=== PATIENT | male | born 1950 | race Caucasian/White ===

== ENCOUNTER 2017-06-04 14:09 | Inpatient (IN) | payer OTHER ==
[2017-06-04 15:38] VITALS: BMI 24.9
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
[2017-06-04] MEDS ORDERED: guaiFENesin/D-METHORPHAN HB 10 ML UNIT-DOSE CUPS PO PRN (20:14)
[2017-06-04] MEDS ORDERED: LOPERAMIDE HCL 2 MG CAPSULE PO PRN (20:14)
[2017-06-04] MEDS ORDERED: MENTHOL/PHENOL 1 EACH UD MM PRN (20:14)
[2017-06-04] MEDS ORDERED: P-EPHED 60MG/TRIPROLIDI 2.5MG TABLET PO PRN (20:14)
[2017-06-04] MEDS ORDERED: MAGNESIUM HYDROX 2400MG/30ML ORAL SUSPENSION 30 ML CUP PO PRN (20:14)
[2017-06-04] MEDS ORDERED: MAG HYDROX/AL HYDROX/SIMETH 30 ML UNIT-DOSE CUP PO PRN (20:14)
[2017-06-04] MEDS ORDERED: NICOTINE POLACRILEX 2 MG GUM BC PRN (20:14)
[2017-06-04] MEDS ORDERED: MAGNESIUM CITRATE 300 ML BOTTLE PO PRN (20:14)
[2017-06-04] MEDS ORDERED: chlordiazePOXIDE HCL 25 MG CAPSULE PO PRN (20:14)
[2017-06-04] MEDS ORDERED: ATORVASTATIN CA 40 MG TABLET (FP) ONE (21:32)
[2017-06-04] MEDS: LATANOPROST 0.005% OPHTH SOLN 2.5ML BOTTLE OU SCH (22:24)
[2017-06-04] MEDS: THIAMINE HCL 100 MG TABLET (FP) PO SCH (22:25)
[2017-06-04] MEDS: chlordiazePOXIDE HCL 25 MG CAPSULE PO SCH (22:25)
[2017-06-04] MEDS: BACLOFEN 10 MG TABLET (FP) PO PRN (22:25)
[2017-06-04] MEDS: ATORVASTATIN CA 80 MG TABLET (FP) PO SCH (22:26)
[2017-06-04] MEDS: TIMOLOL 0.5% OPHTHALMIC SOL 5 ML BOTTLE OU SCH (23:53)
[2017-06-05] MEDS: chlordiazePOXIDE HCL 25 MG CAPSULE PO SCH ×4 (05:48→22:52)
[2017-06-05 10:12] LABS: MCHC 34.1 g/dl (32.0-35.9); MEAN CELL VOLUME 99.9 fl (80-96); MEAN PLT VOLUME 8.7 fl (7.5-11.1); PLATELET COUNT 287 K/MM3 (134-434); RDW 14.1 % (11.9-15.9); WHITE BLOOD COUNT 10.2 K/mm3 (4.0-10.0)
[2017-06-05] MEDS: TAMSULOSIN HCL 0.4 MG CAP.ER.24H (FP) PO SCH (10:22)
[2017-06-05] MEDS: BACLOFEN 10 MG TABLET (FP) PO PRN (10:22)
[2017-06-05] MEDS: ASPIRIN 81 MG CHEWABLE TABLETS PO SCH (10:22)
[2017-06-05] MEDS: PRENATAL VITAMINS W/ FOLIC ACID TABLET (FP) PO SCH (10:22)
[2017-06-05] MEDS: amLODIPine BESYLATE 5 MG TABLET (FP) PO SCH (10:22)
[2017-06-05] MEDS: TIMOLOL 0.5% OPHTHALMIC SOL 5 ML BOTTLE OU SCH ×2 (10:23→22:53)
[2017-06-05] MEDS: NICOTINE 14 MG/24 HOURS TOPICAL PATCH TD SCH (10:24)
--- NOTE | 2017-06-05 10:34 | PN ---
S CIWA - CIWA Score Nausea/Vomitin Muscle Tremors: 3 Anxiety: 3 Agitation: 3 Paroxysmal Sweats: 1-Minimal Palms Moist Orientation: 0-Oriented Tacttile Disturbances: 1-Very Mild Itch/Numbness Auditory Disturbances: 1-Very Mild Visual Disturbances: 0-None Headache: 2-Mild CIWA-Ar Total Score: 17 BHS Progress Note (SOAP) Subjective: alert,irritable,anxious,interrupted sleep,tremor Objective: 06/05/17 10:32 Vital Signs Temperature 97.3 F L 06/05/17 07:41 Pulse Rate 87 06/05/17 07:41 Respiratory Rate 18 06/05/17 07:41 Blood Pressure 143/93 06/05/17 07:41 O2 Sat by Pulse Oximetry (%) ekg nsr,normal ecg labs pending Assessment: 06/05/17 10:34 withdrawal symptom Plan: continue detox
[2017-06-05 11:13] LABS: ALBUMIN 3.1 g/dl (3.4-5.0); CALCIUM 8.6 mg/dL (8.5-10.1); CO2 25 mmol/L (21-32); CREATININE 0.7 mg/dL (0.7-1.3); GLUCOSE,RANDOM 81 mg/dL (74-106); SGOT/AST 21 U/L (15-37); SGPT/ALT 23 U/L (12-78)
[2017-06-05 11:15] LABS: ALK PHOS 96 U/L (45-117); BILIRUBIN,TOTAL 0.5 mg/dL (0.2-1.0); TOT PROT 7.8 g/dl (6.4-8.2)
[2017-06-05] MEDS: LIDOCAINE 5% TOPICAL PATCH TP SCH (11:38)
[2017-06-05 11:43] LABS: ANION GAP 9 (8-16)
[2017-06-05] MEDS ORDERED: FLU VACCINE QUAD 60 MCG/0.5 ML (MDV 17-18) IM ONE (12:00)
[2017-06-05] MEDS: ASPIRIN/DIPYRIDAMOLE 25 MG/200 MG CAPSULE (FP) PO SCH (13:16)
[2017-06-05] MEDS: ACETAMINOPHEN 325 MG TABLET (FP) PO PRN (13:22)
--- NOTE | 2017-06-05 16:31 | EKG ---
Test Reason : Blood Pressure : / mmHG Vent. Rate : 075 BPM Atrial Rate : 075 BPM P-R Int : 120 ms QRS Dur : 106 ms QT Int : 422 ms P-R-T Axes : 032 -12 060 degrees QTc Int : 471 ms NORMAL SINUS RHYTHM RSR' IN V1-V2 NORMAL ECG NO PREVIOUS ECGS AVAILABLE Confirmed by JACQUI MEDINA MD ([id number]) on 06/05/2017 4:30:49 PM Referred By: Confirmed By:JACQUI MEDINA MD
[2017-06-05] MEDS ORDERED: ATORVASTATIN CA 40 MG TABLET (FP) ONE (21:21)
[2017-06-05] MEDS: ATORVASTATIN CA 80 MG TABLET (FP) PO SCH (22:53)
[2017-06-05] MEDS: THIAMINE HCL 100 MG TABLET (FP) PO SCH (22:53)
[2017-06-05] MEDS: LATANOPROST 0.005% OPHTH SOLN 2.5ML BOTTLE OU SCH (22:53)
[2017-06-05] MEDS: LIDOCAINE PATCH REMOVAL MC SCH (22:53)
[2017-06-06] MEDS: ACETAMINOPHEN 325 MG TABLET (FP) PO PRN ×3 (01:58→16:23)
[2017-06-06] MEDS: chlordiazePOXIDE HCL 25 MG CAPSULE PO SCH ×3 (05:16→17:45)
--- NOTE | 2017-06-06 09:44 | PN ---
S CIWA - CIWA Score Nausea/Vomitin Muscle Tremors: 3 Anxiety: 3 Agitation: 2 Paroxysmal Sweats: 1-Minimal Palms Moist Orientation: 0-Oriented Tacttile Disturbances: 1-Very Mild Itch/Numbness Auditory Disturbances: 1-Very Mild Visual Disturbances: 0-None Headache: 2-Mild CIWA-Ar Total Score: 16 BHS Progress Note (SOAP) Subjective: alert,irritable,anxious,interrupted sleep,tremor Objective: 06/06/17 09:43 Vital Signs Temperature 96.3 F L 06/06/17 07:19 Pulse Rate 83 06/06/17 07:19 Respiratory Rate 8 L 06/06/17 07:19 Blood Pressure 144/83 06/06/17 07:19 O2 Sat by Pulse Oximetry (%) Laboratory Last Values WBC 10.2 K/mm3 (4.0-10.0) H D 06/05/17 07:40 RBC 4.04 M/mm3 (4.00-5.60) 06/05/17 07:40 Hgb 13.8 GM/dL (11.7-16.9) 06/05/17 07:40 Hct 40.4 % (35.4-49) 06/05/17 07:40 MCV 99.9 fl (80-96) H 06/05/17 07:40 MCH 34.0 pg (25.7-33.7) H 06/05/17 07:40 MCHC 34.1 g/dl (32.0-35.9) 06/05/17 07:40 RDW 14.1 % (11.9-15.9) D 06/05/17 07:40 Plt Count 287 K/MM3 (134-434) D 06/05/17 07:40 MPV 8.7 fl (7.5-11.1) 06/05/17 07:40 Sodium 140 mmol/L (136-145) 06/05/17 07:40 Potassium 3.9 mmol/L (3.5-5.1) 06/05/17 07:40 Chloride 106 mmol/L (98-107) 06/05/17 07:40 Carbon Dioxide 25 mmol/L (21-32) 06/05/17 07:40 Anion Gap 9 (8-16) 06/05/17 07:40 BUN 13 mg/dL (7-18) D 06/05/17 07:40 Creatinine 0.7 mg/dL (0.7-1.3) 06/05/17 07:40 Creat Clearance w eGFR > 60 (>60) 06/05/17 07:40 Random Glucose 81 mg/dL (74-106) 06/05/17 07:40 Calcium 8.6 mg/dL (8.5-10.1) 06/05/17 07:40 Total Bilirubin 0.5 mg/dL (0.2-1.0) D 06/05/17 07:40 AST 21 U/L (15-37) D 06/05/17 07:40 ALT 23 U/L (12-78) D 06/05/17 07:40 Alkaline Phosphatase 96 U/L (45-117) 06/05/17 07:40 Total Protein 7.8 g/dl (6.4-8.2) 06/05/17 07:40 Albumin 3.1 g/dl (3.4-5.0) L 06/05/17 07:40 RPR Titer Nonreactive (NONREACTIVE) 06/05/17 07:40 Assessment: 06/06/17 09:43 withdrawal symptom Plan: continue detox
[2017-06-06] MEDS: LIDOCAINE 5% TOPICAL PATCH TP SCH (10:00)
[2017-06-06] MEDS: PRENATAL VITAMINS W/ FOLIC ACID TABLET (FP) PO SCH (10:08)
[2017-06-06] MEDS: amLODIPine BESYLATE 5 MG TABLET (FP) PO SCH (10:08)
[2017-06-06] MEDS: ASPIRIN 81 MG CHEWABLE TABLETS PO SCH (10:08)
[2017-06-06] MEDS: TAMSULOSIN HCL 0.4 MG CAP.ER.24H (FP) PO SCH (10:08)
[2017-06-06] MEDS: TIMOLOL 0.5% OPHTHALMIC SOL 5 ML BOTTLE OU SCH ×2 (10:09→22:04)
[2017-06-06] MEDS: ASPIRIN/DIPYRIDAMOLE 25 MG/200 MG CAPSULE (FP) PO SCH (10:09)
[2017-06-06] MEDS: NICOTINE 14 MG/24 HOURS TOPICAL PATCH TD SCH (10:09)
[2017-06-06] MEDS: BACLOFEN 10 MG TABLET (FP) PO PRN (10:11)
[2017-06-06 11:28] LABS: URINE APPEARANCE CLEAR; URINE BILIRUBIN NEGATIVE (NEGATIVE); URINE BLOOD NEGATIVE (NEGATIVE); URINE COLOR LTYELLOW; URINE GLUCOSE (UA) NEGATIVE (NEGATIVE); URINE KETONE NEGATIVE (NEGATIVE); URINE NITRITE NEGATIVE (NEGATIVE); URINE PROTEIN NEGATIVE (NEGATIVE); URINE UROBILINOGEN NEGATIVE mg/dL (0.2-1.0)
[2017-06-06 19:07] LABS: URINE LEUK ESTERASE Negative (NEGATIVE)
[2017-06-06] MEDS ORDERED: ATORVASTATIN CA 40 MG TABLET (FP) ONE (21:05)
[2017-06-06] MEDS: LATANOPROST 0.005% OPHTH SOLN 2.5ML BOTTLE OU SCH (22:04)
[2017-06-06] MEDS: LIDOCAINE PATCH REMOVAL MC SCH (22:05)
[2017-06-06] MEDS: THIAMINE HCL 100 MG TABLET (FP) PO SCH (22:05)
[2017-06-06] MEDS: chlordiazePOXIDE 5 MG CAPSULE PO SCH (22:06)
[2017-06-06] MEDS: ATORVASTATIN CA 80 MG TABLET (FP) PO SCH (22:06)
[2017-06-07] MEDS: chlordiazePOXIDE 5 MG CAPSULE PO SCH ×3 (05:16→17:45)
--- NOTE | 2017-06-07 09:08 | PN ---
S Progress Note (SOAP) Subjective: alert,irritable,anxious,interrupted sleep,tremor constipation Objective: 06/07/17 09:04 Vital Signs Temperature 97.5 F L 06/07/17 06:02 Pulse Rate 85 06/07/17 06:02 Respiratory Rate 18 06/07/17 06:02 Blood Pressure 138/88 06/07/17 06:02 O2 Sat by Pulse Oximetry (%) Assessment: 06/07/17 09:06 withdrawal symptom Plan: continue detox,metamucil
[2017-06-07] MEDS: TAMSULOSIN HCL 0.4 MG CAP.ER.24H (FP) PO SCH (10:09)
[2017-06-07] MEDS: ASPIRIN 81 MG CHEWABLE TABLETS PO SCH (10:09)
[2017-06-07] MEDS: amLODIPine BESYLATE 5 MG TABLET (FP) PO SCH (10:09)
[2017-06-07] MEDS: PRENATAL VITAMINS W/ FOLIC ACID TABLET (FP) PO SCH (10:09)
[2017-06-07] MEDS: ASPIRIN/DIPYRIDAMOLE 25 MG/200 MG CAPSULE (FP) PO SCH (10:09)
[2017-06-07] MEDS: NICOTINE 14 MG/24 HOURS TOPICAL PATCH TD SCH (10:10)
[2017-06-07] MEDS: TIMOLOL 0.5% OPHTHALMIC SOL 5 ML BOTTLE OU SCH ×2 (10:10→22:19)
[2017-06-07] MEDS: LIDOCAINE 5% TOPICAL PATCH TP SCH (10:11)
[2017-06-07] MEDS: PSYLLIUM 5.85 GM PACKET PO SCH (10:12)
[2017-06-07] MEDS: BACLOFEN 10 MG TABLET (FP) PO PRN (22:20)
[2017-06-07] MEDS: ATORVASTATIN CA 80 MG TABLET (FP) PO SCH (22:20)
[2017-06-07] MEDS: LIDOCAINE PATCH REMOVAL MC SCH (22:20)
[2017-06-07] MEDS: LATANOPROST 0.005% OPHTH SOLN 2.5ML BOTTLE OU SCH (22:20)
[2017-06-07] MEDS: chlordiazePOXIDE HCL 10 MG CAPSULE PO SCH (22:20)
[2017-06-07] MEDS: THIAMINE HCL 100 MG TABLET (FP) PO SCH (22:45)
[2017-06-08] MEDS: chlordiazePOXIDE HCL 10 MG CAPSULE PO SCH ×3 (05:43→17:16)
[2017-06-08] MEDS: ASPIRIN/DIPYRIDAMOLE 25 MG/200 MG CAPSULE (FP) PO SCH (10:31)
[2017-06-08] MEDS: ASPIRIN 81 MG CHEWABLE TABLETS PO SCH (10:31)
[2017-06-08] MEDS: PSYLLIUM 5.85 GM PACKET PO SCH (10:32)
[2017-06-08] MEDS: TIMOLOL 0.5% OPHTHALMIC SOL 5 ML BOTTLE OU SCH ×2 (10:32→22:25)
[2017-06-08] MEDS: amLODIPine BESYLATE 5 MG TABLET (FP) PO SCH (10:32)
[2017-06-08] MEDS: PRENATAL VITAMINS W/ FOLIC ACID TABLET (FP) PO SCH (10:32)
[2017-06-08] MEDS: TAMSULOSIN HCL 0.4 MG CAP.ER.24H (FP) PO SCH (10:32)
[2017-06-08] MEDS: NICOTINE 14 MG/24 HOURS TOPICAL PATCH TD SCH (10:33)
[2017-06-08] MEDS: LIDOCAINE 5% TOPICAL PATCH TP SCH (10:33)
[2017-06-08] MEDS: THIAMINE HCL 100 MG TABLET (FP) PO SCH (22:26)
[2017-06-08] MEDS: ATORVASTATIN CA 80 MG TABLET (FP) PO SCH (22:26)
[2017-06-08] MEDS: LATANOPROST 0.005% OPHTH SOLN 2.5ML BOTTLE OU SCH (22:26)
[2017-06-08] MEDS: LIDOCAINE PATCH REMOVAL MC SCH (22:27)
[2017-06-09] MEDS: BACLOFEN 10 MG TABLET (FP) PO PRN (05:34)
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
[2017-06-09 10:02] VITALS: BP 120/72; PULSE 90; TEMP 98.1
[2017-06-09] MEDS: PRENATAL VITAMINS W/ FOLIC ACID TABLET (FP) PO SCH (10:15)
[2017-06-09] MEDS: ASPIRIN/DIPYRIDAMOLE 25 MG/200 MG CAPSULE (FP) PO SCH (10:15)
[2017-06-09] MEDS: ASPIRIN 81 MG CHEWABLE TABLETS PO SCH (10:15)
[2017-06-09] MEDS: amLODIPine BESYLATE 5 MG TABLET (FP) PO SCH (10:15)
[2017-06-09] MEDS: TAMSULOSIN HCL 0.4 MG CAP.ER.24H (FP) PO SCH (10:15)
[2017-06-09] MEDS: LIDOCAINE 5% TOPICAL PATCH TP SCH (10:15)
[2017-06-09] MEDS: PSYLLIUM 5.85 GM PACKET PO SCH (10:15)
[2017-06-09] MEDS: TIMOLOL 0.5% OPHTHALMIC SOL 5 ML BOTTLE OU SCH (10:16)
[2017-06-09] MEDS: NICOTINE 14 MG/24 HOURS TOPICAL PATCH TD SCH (11:02)
== END 2017-06-09 10:20 | disposition home or self-care (01) | DRG 775 ==
LOC: YASAS 14:09 → Y6N 19:23
PROVIDERS: ADMIT Internal Medicine; ATTEND Internal Medicine
PROC: HZ2ZZZZ Detoxification Services for Substance Abuse Treatment (ICD-10-PCS; principal; 2017-06-04)
DX: F10.230 Alcohol dependence with withdrawal, uncomplicated (principal); F12.20 Cannabis dependence, uncomplicated; F17.213 Nicotine dependence, cigarettes, with withdrawal; I10 Essential (primary) hypertension; H40.9 Unspecified glaucoma; E78.5 Hyperlipidemia, unspecified; D64.9 Anemia, unspecified; R00.0 Tachycardia, unspecified; R26.2 Difficulty in walking, not elsewhere classified; Z99.89 Dependence on other enabling machines and devices; Z86.718 Personal history of other venous thrombosis and embolism; I69.351 Hemiplegia and hemiparesis following cerebral infarction affecting right dominant side; Z87.898 Personal history of other specified conditions; Z87.828 Personal history of other (healed) physical injury and trauma; Z98.890 Other specified postprocedural states; Z79.82 Long term (current) use of aspirin; Z59.0 Homelessness
CPT/HCPCS: 36415; 80053; 81003; 85027; 86593; 90688; 93005; 93010; G0008; J0475

== ENCOUNTER 2018-08-31 13:45 | Inpatient (IN) | payer OTHER ==
[2018-08-31 16:30] VITALS: BMI 22.8
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
[2018-08-31] MEDS ORDERED: MAG HYDROX/AL HYDROX/SIMETH 30 ML UNIT-DOSE CUP PO PRN (19:41)
[2018-08-31] MEDS ORDERED: P-EPHED 60MG/TRIPROLIDI 2.5MG TABLET PO PRN (19:41)
[2018-08-31] MEDS ORDERED: ACETAMINOPHEN 325 MG TABLET (FP) PO PRN (19:41)
[2018-08-31] MEDS ORDERED: IBUPROFEN 400 MG TABLET (FP) PO PRN (19:41)
[2018-08-31] MEDS ORDERED: guaiFENesin/D-METHORPHAN HB 10 ML UNIT-DOSE CUPS PO PRN (19:41)
[2018-08-31] MEDS ORDERED: NICOTINE POLACRILEX 2 MG GUM BC PRN (19:41)
[2018-08-31] MEDS ORDERED: LOPERAMIDE HCL 2 MG CAPSULE PO PRN (19:41)
[2018-08-31] MEDS ORDERED: MENTHOL/PHENOL 1 EACH UD MM PRN (19:41)
[2018-08-31] MEDS ORDERED: MAGNESIUM HYDROX 2400MG/30ML ORAL SUSPENSION 30 ML CUP PO PRN (19:41)
[2018-08-31] MEDS ORDERED: chlordiazePOXIDE HCL 25 MG CAPSULE PO PRN (19:41)
[2018-08-31] MEDS ORDERED: MAGNESIUM CITRATE 300 ML BOTTLE PO PRN (19:41)
[2018-08-31] MEDS ORDERED: PATIENT'S OWN MEDICATION (NON-FORMULARY) (Dorzolamide Hcl/Timolol Maleat [Cosopt Eye Drops OS SCH (19:45)
[2018-08-31] MEDS ORDERED: MELATONIN 5 MG TABLETS PO PRN (22:00)
[2018-08-31] MEDS: THIAMINE HCL 100 MG TABLET (FP) PO SCH (22:19)
[2018-08-31] MEDS: chlordiazePOXIDE HCL 25 MG CAPSULE PO SCH (22:19)
[2018-08-31] MEDS: COLLOIDAL OATMEAL 1 BAR EACH TP PRN (22:26)
[2018-08-31] MEDS: hydrOXYzine HCL 25 MG TABLET (FP) PO PRN (22:27)
[2018-08-31 23:10] LABS: URINE APPEARANCE CLEAR; URINE BILIRUBIN NEGATIVE (<2.0 mg/dL); URINE COLOR YELLOW; URINE GLUCOSE (UA) NEGATIVE (NEGATIVE); URINE KETONE NEGATIVE (NEGATIVE); URINE LEUK ESTERASE NEGATIVE (NEGATIVE); URINE NITRITE NEGATIVE (NEGATIVE); URINE PROTEIN 2+ (NEGATIVE); URINE UROBILINOGEN NEGATIVE mg/dL (0.2-1.0)
[2018-08-31 23:15] LABS: EPI CELLS RARE /HPF (FEW); URINE MUCUS RARE
[2018-08-31] MEDS: TIMOLOL 0.5% OPHTHALMIC SOL 5 ML BOTTLE OU SCH (23:29)
[2018-08-31] MEDS: DORZOLAMIDE 2% HCL OPHTHALMIC SOLUTION 10 ML BOTTLE OS SCH (23:30)
[2018-08-31] MEDS: TIMOLOL 0.5% OPHTHALMIC SOL 5 ML BOTTLE OS SCH (23:30)
[2018-08-31] MEDS: LATANOPROST 0.005% OPHTH SOLN 2.5ML BOTTLE OU SCH (23:31)
[2018-09-01] MEDS: chlordiazePOXIDE HCL 25 MG CAPSULE PO SCH ×4 (05:32→23:10)
--- NOTE | 2018-09-01 09:40 | CONSULT ---
[facility] Psychiatric Consult - Data Date of interview: 09/01/18 Admission source: [facility] Identifying data: Patient is a 68 year old [place] male, father of one, unemployed , homeless, and supported by [facility]. This is one of multiple admissions for patient. Patient admitted to for alcohol dependence. Substance Abuse History: Smoking Cessation. Smoking history: Current every day smoker. Have you smoked in the past 12 months: Yes. Aproximately how many cigarettes per day: 10. Cigars Per Day: 0. Hx Chewing Tobacco Use: No. Initiated information on smoking cessation: Yes. 'Breaking Loose' booklet given : 08/31/18. - Substance & Tx. History. Hx Alcohol Use: Yes. Hx Substance Use : Yes. Substance Use Type: Alcohol, Marijuana. - Substances Abused. Alcohol. Route: Oral. Frequency: Daily. Amount used: 30 BEERS. Age of first use: 20. Date of Last Use: 08/31/18. Marijuana/Hashish. Route: Smoking. Frequency: 1-2 times per week. Amount used: 2 BLUNTS. Age of first use: 40. Date of Last Use: 08/30/18 Medical History: Anemia, hypertension, hypercholesterolemia, CVA (right sided weakness) Psychiatric History: Patient denies h/o psychiatric hospitalization, outpatient care, and suicide attempt. He denies feeling depressed. Only stated that he misses his family since leaving [place] 40 years ago and has lost contact with all of them. At present he reports feeling fine. Physical/Sexual Abuse/Trauma History: denies. Mental Status Exam - Mental Status Exam Alert and Oriented to: Time, Place, Person Cognitive Function: Good Patient Appearance: Well Groomed Mood: Euthymic Affect: Appropriate Patient Behavior: Appropriate, Cooperative Speech Pattern: Appropriate ([place] speaking) Voice Loudness: Normal Thought Process: Intact, Goal Oriented Thought Disorder: Not Present Hallucinations: Denies Suicidal Ideation: Denies Homicidal Ideation: Denies Insight/Judgement: Poor Sleep: Fair Appetite: Fair Muscle strength/Tone: Normal Gait/Station: Normal Psychiatric Findings - Problem List ([place] 1, 2,3) (1) Alcohol dependence with uncomplicated withdrawal Current Visit: Yes Status: Acute (2) Nicotine dependence Current Visit: Yes Status: Acute Qualifiers: Nicotine product type: cigarettes Substance use status: in withdrawal Qualified Code(s): F17.213 - Nicotine dependence, cigarettes, with withdrawal - Initial Treatment Plan Initial Treatment Plan: Psychoeducation provided. Detoxification in progress. Observation.
[2018-09-01] MEDS ORDERED: PRENATAL VITAMINS W/ FOLIC ACID TABLET (FP) PO SCH (10:00)
[2018-09-01] MEDS: TAMSULOSIN HCL 0.4 MG CAP PO SCH (10:24)
[2018-09-01] MEDS: amLODIPine BESYLATE 10 MG TABLET (FP) PO SCH (10:24)
[2018-09-01] MEDS: NICOTINE 14 MG/24 HOURS TOPICAL PATCH TD SCH (10:25)
[2018-09-01] MEDS: TIMOLOL 0.5% OPHTHALMIC SOL 5 ML BOTTLE OU SCH ×2 (10:25→23:14)
[2018-09-01] MEDS: TIMOLOL 0.5% OPHTHALMIC SOL 5 ML BOTTLE OS SCH ×2 (10:26→23:13)
[2018-09-01] MEDS: DORZOLAMIDE 2% HCL OPHTHALMIC SOLUTION 10 ML BOTTLE OS SCH ×2 (10:27→23:15)
[2018-09-01] MEDS: HYDROCORTISONE 1% TOPICAL OINT 30 GM TUBE TP PRN ×2 (10:28→19:47)
[2018-09-01 10:31] LABS: HEMATOCRIT 39.2 % (35.4-49); HEMOGLOBIN 13.6 GM/dL (11.7-16.9); MCH 35.8 pg (25.7-33.7); MCHC 34.7 g/dl (32.0-35.9); MEAN CELL VOLUME 103.3 fl (80-96); MEAN PLT VOLUME 9.2 fl (7.5-11.1); PLATELET COUNT 163 K/MM3 (134-434); RBC 3.79 M/mm3 (4.00-5.60); RDW 15.2 % (11.9-15.9); WHITE BLOOD COUNT 5.6 K/mm3 (4.0-10.0)
[2018-09-01 11:06] LABS: ALBUMIN 3.5 g/dl (3.4-5.0); ALK PHOS 77 U/L (45-117); ANION GAP 6 MMOL/L (8-16); BILIRUBIN,TOTAL 0.9 mg/dL (0.2-1); BLOOD UREA NITROGEN 33 mg/dL (7-18); CALCIUM 8.6 mg/dL (8.5-10.1); CHLORIDE 106 mmol/L (98-107); CO2 29 mmol/L (21-32); GLUCOSE,RANDOM 90 mg/dL (74-106); POTASSIUM 3.4 mmol/L (3.5-5.1); SGOT/AST 121 U/L (15-37); SGPT/ALT 141 U/L (13-61); SODIUM 141 mmol/L (136-145); TOT PROT 6.9 g/dl (6.4-8.2)
--- NOTE | 2018-09-01 13:13 | PN ---
S CIWA - CIWA Score Nausea/Vomitin-Mild Nausea/No Vomiting Muscle Tremors: 3 Anxiety: 2 Agitation: 3 Paroxysmal Sweats: 1-Minimal Palms Moist Orientation: 1-Uncertain about Date Tacttile Disturbances: 0-None Auditory Disturbances: 0-None Visual Disturbances: 0-None Headache: 2-Mild CIWA-Ar Total Score: 13 S Progress Note (SOAP) Subjective: difficulty to move bowel tremor sweating Objective: 09/01/18 13:12 Vital Signs Temperature 96.3 F L 09/01/18 09:15 Pulse Rate 94 H 09/01/18 09:15 Respiratory Rate 18 09/01/18 09:15 Blood Pressure 135/82 09/01/18 09:15 O2 Sat by Pulse Oximetry (%) Laboratory Last Values WBC 5.6 K/mm3 (4.0-10.0) 09/01/18 07:00 RBC 3.79 M/mm3 (4.00-5.60) L 09/01/18 07:00 Hgb 13.6 GM/dL (11.7-16.9) 09/01/18 07:00 Hct 39.2 % (35.4-49) 09/01/18 07:00 MCV 103.3 fl (80-96) H 09/01/18 07:00 MCH 35.8 pg (25.7-33.7) H 09/01/18 07:00 MCHC 34.7 g/dl (32.0-35.9) 09/01/18 07:00 RDW 15.2 % (11.9-15.9) 09/01/18 07:00 Plt Count 163 K/MM3 (134-434) D 09/01/18 07:00 MPV 9.2 fl (7.5-11.1) 09/01/18 07:00 Sodium 141 mmol/L (136-145) 09/01/18 07:00 Potassium 3.4 mmol/L (3.5-5.1) L 09/01/18 07:00 Chloride 106 mmol/L (98-107) 09/01/18 07:00 Carbon Dioxide 29 mmol/L (21-32) 09/01/18 07:00 Anion Gap 6 MMOL/L (8-16) L 09/01/18 07:00 BUN 33 mg/dL (7-18) H 09/01/18 07:00 Creatinine 1.0 mg/dL (0.55-1.3) 09/01/18 07:00 Creat Clearance w eGFR > 60 (>60) 09/01/18 07:00 Random Glucose 90 mg/dL (74-106) 09/01/18 07:00 Calcium 8.6 mg/dL (8.5-10.1) 09/01/18 07:00 Total Bilirubin 0.9 mg/dL (0.2-1) 09/01/18 07:00 AST 121 U/L (15-37) H 09/01/18 07:00 ALT 141 U/L (13-61) H 09/01/18 07:00 Alkaline Phosphatase 77 U/L (45-117) 09/01/18 07:00 Total Protein 6.9 g/dl (6.4-8.2) 09/01/18 07:00 Albumin 3.5 g/dl (3.4-5.0) 09/01/18 07:00 Urine Color Yellow 08/31/18 22:00 Urine Appearance Clear 08/31/18 22:00 Urine pH 5.0 (5.0-8.0) D 08/31/18 22:00 Ur Specific [place] 1.024 (1.010-1.035) 08/31/18 22:00 Urine Protein 2+ (NEGATIVE) H 08/31/18 22:00 Urine Glucose (UA) Negative (NEGATIVE) 08/31/18 22:00 Urine Ketones Negative (NEGATIVE) 08/31/18 22:00 Urine Blood 1+ (NEGATIVE) H 08/31/18 22:00 Urine Nitrite Negative (NEGATIVE) 08/31/18 22:00 Urine Bilirubin Negative (<2.0 mg/dL) 08/31/18 22:00 Urine Urobilinogen Negative mg/dL (0.2-1.0) 08/31/18 22:00 Ur Leukocyte Esterase Negative (NEGATIVE) 08/31/18 22:00 Urine WBC (Auto) 1 /hpf (3-5) 08/31/18 22:00 Urine RBC (Auto) 2 /hpf (0-3) 08/31/18 22:00 Ur Epithelial Cells Rare /HPF (FEW) 08/31/18 22:00 Urine Mucus Rare 08/31/18 22:00 lab noted low K+ liver enzyme elevation 09/01/18 13:15 Assessment: 09/01/18 13:15 withdrawal sx Plan: continue detox K+ supplement repeat K+ repeat ast
[2018-09-01] MEDS: POTASSIUM CHLORIDE TABS 20 MEQ TABLET.ER (FP) PO SCH (15:17)
[2018-09-01] MEDS: PSYLLIUM 5.85 GM PACKET PO SCH ×2 (15:17→23:07)
--- NOTE | 2018-09-01 16:47 | EKG ---
Test Reason : Blood Pressure : / mmHG Vent. Rate : 087 BPM Atrial Rate : 087 BPM P-R Int : 138 ms QRS Dur : 108 ms QT Int : 380 ms P-R-T Axes : 042 -23 053 degrees QTc Int : 457 ms NORMAL SINUS RHYTHM NORMAL ECG WHEN COMPARED WITH ECG OF 04-JUN-2017 21:22, NO SIGNIFICANT CHANGE WAS FOUND Confirmed by BRINA TORRES MD ([id number]) on 09/01/2018 4:47:06 PM Referred By: Confirmed By:BRINA TORRES MD
[2018-09-01] MEDS: THIAMINE HCL 100 MG TABLET (FP) PO SCH (23:10)
[2018-09-01] MEDS: hydrOXYzine HCL 25 MG TABLET (FP) PO PRN (23:10)
[2018-09-01] MEDS: LATANOPROST 0.005% OPHTH SOLN 2.5ML BOTTLE OU SCH (23:12)
[2018-09-02] MEDS: chlordiazePOXIDE HCL 25 MG CAPSULE PO SCH ×3 (05:55→17:17)
[2018-09-02] MEDS: NICOTINE 14 MG/24 HOURS TOPICAL PATCH TD SCH (10:14)
[2018-09-02] MEDS: amLODIPine BESYLATE 10 MG TABLET (FP) PO SCH (10:14)
[2018-09-02] MEDS: TAMSULOSIN HCL 0.4 MG CAP PO SCH (10:16)
[2018-09-02] MEDS: POTASSIUM CHLORIDE TABS 20 MEQ TABLET.ER (FP) PO SCH (10:16)
[2018-09-02] MEDS: HYDROCORTISONE 1% TOPICAL OINT 30 GM TUBE TP PRN ×2 (10:18→22:58)
[2018-09-02] MEDS: TIMOLOL 0.5% OPHTHALMIC SOL 5 ML BOTTLE OU SCH ×2 (10:20→22:53)
[2018-09-02] MEDS: DORZOLAMIDE 2% HCL OPHTHALMIC SOLUTION 10 ML BOTTLE OS SCH ×2 (10:20→22:54)
[2018-09-02] MEDS: PSYLLIUM 5.85 GM PACKET PO SCH ×3 (11:12→22:52)
[2018-09-02] MEDS: TIMOLOL 0.5% OPHTHALMIC SOL 5 ML BOTTLE OS SCH ×2 (11:14→22:56)
--- NOTE | 2018-09-02 17:13 | PN ---
[facility] CIWA - CIWA Score Nausea/Vomitin-No Nausea/No Vomiting Muscle Tremors: 2 Anxiety: 3 Agitation: 0-Normal Activity Paroxysmal Sweats: 3 Orientation: 0-Oriented Tacttile Disturbances: 2-Mild Itch/Numbness/Burn Auditory Disturbances: 0-None Visual Disturbances: 0-None Headache: 0-None Present CIWA-Ar Total Score: 10 S Progress Note (SOAP) Subjective: Constipation, Tremors, Sweating. Objective: PATIENT A & O X 3, OBSERVED AMBULATING ON UNIT. IN NO ACUTE DISTRESS. PATIENT DENIES CHEST PAIN. 09/02/18 17:15 Vital Signs Temperature 97.0 F L 09/02/18 13:14 Pulse Rate 60 09/02/18 13:14 Respiratory Rate 20 09/02/18 13:14 Blood Pressure 146/80 09/02/18 13:14 O2 Sat by Pulse Oximetry (%) Laboratory Tests 08/31/18 09/01/18 09/01/18 22:00 07:00 07:00 WBC 5.6 RBC 3.79 L Hgb 13.6 Hct 39.2 MCV 103.3 H MCH 35.8 H MCHC 34.7 RDW 15.2 Plt Count 163 D MPV 9.2 Sodium 141 Potassium 3.4 L Chloride 106 Carbon Dioxide 29 Anion Gap 6 L BUN 33 H Creatinine 1.0 Creat Clearance w eGFR > 60 Random Glucose 90 Calcium 8.6 Total Bilirubin 0.9 AST 121 H ALT 141 H Alkaline Phosphatase 77 Total Protein 6.9 Albumin 3.5 Urine Color Yellow Urine Appearance Clear Urine pH 5.0 D Ur Specific [place] 1.024 Urine Protein 2+ H Urine Glucose (UA) Negative Urine Ketones Negative Urine Blood 1+ H Urine Nitrite Negative Urine Bilirubin Negative Urine Urobilinogen Negative Ur Leukocyte Esterase Negative Urine WBC (Auto) 1 Urine RBC (Auto) 2 Ur Epithelial Cells Rare Urine Mucus Rare RPR Titer 09/01/18 07:00 WBC RBC Hgb Hct MCV MCH MCHC RDW Plt Count MPV Sodium Potassium Chloride Carbon Dioxide Anion Gap BUN Creatinine Creat Clearance w eGFR Random Glucose Calcium Total Bilirubin AST ALT Alkaline Phosphatase Total Protein Albumin Urine Color Urine Appearance Urine pH Ur Specific [place] Urine Protein Urine Glucose (UA) Urine Ketones Urine Blood Urine Nitrite Urine Bilirubin Urine Urobilinogen Ur Leukocyte Esterase Urine WBC (Auto) Urine RBC (Auto) Ur Epithelial Cells Urine Mucus RPR Titer Nonreactive LABS NOTED. Assessment: 09/02/18 17:16 WITHDRAWAL SYMPTOMS. ELEVATED LIVER ENZYMES. HYPOKALEMIA. Plan: CONTINUE DETOX. INCREASE DAILY PO FLUID INTAKE. PRN MOM FOR CONSTIPATION. CONTINUE K-DUR. REPAT K AND AST LEVELS SCHEDULED FOR TOMORROW AM.
[2018-09-02] MEDS: COLLOIDAL OATMEAL 1 BAR EACH TP PRN (22:41)
[2018-09-02] MEDS: THIAMINE HCL 100 MG TABLET (FP) PO SCH (22:41)
[2018-09-02] MEDS: chlordiazePOXIDE 5 MG CAPSULE PO SCH (22:45)
[2018-09-02] MEDS: LATANOPROST 0.005% OPHTH SOLN 2.5ML BOTTLE OU SCH (22:56)
[2018-09-03] MEDS: chlordiazePOXIDE 5 MG CAPSULE PO SCH ×3 (06:18→17:21)
[2018-09-03] MEDS: NICOTINE 14 MG/24 HOURS TOPICAL PATCH TD SCH (10:39)
[2018-09-03] MEDS: TAMSULOSIN HCL 0.4 MG CAP PO SCH (10:39)
[2018-09-03] MEDS: amLODIPine BESYLATE 10 MG TABLET (FP) PO SCH (10:39)
[2018-09-03] MEDS: POTASSIUM CHLORIDE TABS 20 MEQ TABLET.ER (FP) PO SCH (10:39)
[2018-09-03] MEDS: DORZOLAMIDE 2% HCL OPHTHALMIC SOLUTION 10 ML BOTTLE OS SCH ×2 (10:40→22:44)
[2018-09-03] MEDS: TIMOLOL 0.5% OPHTHALMIC SOL 5 ML BOTTLE OS SCH (10:40)
[2018-09-03] MEDS: HYDROCORTISONE 1% TOPICAL OINT 30 GM TUBE TP PRN ×2 (10:45→19:03)
[2018-09-03] MEDS: TIMOLOL 0.5% OPHTHALMIC SOL 5 ML BOTTLE OU SCH ×2 (10:47→22:44)
[2018-09-03] MEDS: PSYLLIUM 5.85 GM PACKET PO SCH ×2 (10:48→22:44)
--- NOTE | 2018-09-03 15:01 | PN ---
[facility] Progress Note (SOAP) Subjective: Constipation. Objective: PATIENT A & O X 2 (UNCERTAIN ABOUT CURRENT DAY / DATE). PATIENT OBSERVED AMBULATING ON UNIT WITH ASSISTANCE OF A CANE. IN NO ACUTE DISTRESS. 09/03/18 14:59 Vital Signs Temperature 98.1 F 09/03/18 13:35 Pulse Rate 80 09/03/18 13:35 Respiratory Rate 18 09/03/18 13:35 Blood Pressure 135/81 09/03/18 13:35 O2 Sat by Pulse Oximetry (%) Laboratory Tests 08/31/18 09/01/18 09/01/18 22:00 07:00 07:00 WBC 5.6 RBC 3.79 L Hgb 13.6 Hct 39.2 MCV 103.3 H MCH 35.8 H MCHC 34.7 RDW 15.2 Plt Count 163 D MPV 9.2 Sodium 141 Potassium 3.4 L Chloride 106 Carbon Dioxide 29 Anion Gap 6 L BUN 33 H Creatinine 1.0 Creat Clearance w eGFR > 60 Random Glucose 90 Calcium 8.6 Total Bilirubin 0.9 AST 121 H ALT 141 H Alkaline Phosphatase 77 Total Protein 6.9 Albumin 3.5 Urine Color Yellow Urine Appearance Clear Urine pH 5.0 D Ur Specific [place] 1.024 Urine Protein 2+ H Urine Glucose (UA) Negative Urine Ketones Negative Urine Blood 1+ H Urine Nitrite Negative Urine Bilirubin Negative Urine Urobilinogen Negative Ur Leukocyte Esterase Negative Urine WBC (Auto) 1 Urine RBC (Auto) 2 Ur Epithelial Cells Rare Urine Mucus Rare RPR Titer 09/01/18 07:00 WBC RBC Hgb Hct MCV MCH MCHC RDW Plt Count MPV Sodium Potassium Chloride Carbon Dioxide Anion Gap BUN Creatinine Creat Clearance w eGFR Random Glucose Calcium Total Bilirubin AST ALT Alkaline Phosphatase Total Protein Albumin Urine Color Urine Appearance Urine pH Ur Specific [place] Urine Protein Urine Glucose (UA) Urine Ketones Urine Blood Urine Nitrite Urine Bilirubin Urine Urobilinogen Ur Leukocyte Esterase Urine WBC (Auto) Urine RBC (Auto) Ur Epithelial Cells Urine Mucus RPR Titer Nonreactive LABS NOTED. Assessment: 09/03/18 15:00 WITHDRAWAL SYMPTOMS. ELEVATED LIVER ENZYMES. Plan: CONTINUE DETOX. INCREASE DAILY PO FLUID INTAKE. PRN MOM FOR CONSTIPATION. PATIENT SCHEDULED FOR D/C TOMORROW.
[2018-09-03] MEDS: hydrOXYzine HCL 25 MG TABLET (FP) PO PRN (17:23)
[2018-09-03] MEDS: THIAMINE HCL 100 MG TABLET (FP) PO SCH (22:45)
[2018-09-03] MEDS: chlordiazePOXIDE HCL 10 MG CAPSULE PO SCH (22:45)
[2018-09-03] MEDS: LATANOPROST 0.005% OPHTH SOLN 2.5ML BOTTLE OU SCH (22:45)
[2018-09-04] MEDS: chlordiazePOXIDE HCL 10 MG CAPSULE PO SCH ×3 (05:58→17:23)
[2018-09-04] MEDS: POTASSIUM CHLORIDE TABS 20 MEQ TABLET.ER (FP) PO SCH (10:23)
[2018-09-04] MEDS: TAMSULOSIN HCL 0.4 MG CAP PO SCH (10:23)
[2018-09-04] MEDS: NICOTINE 14 MG/24 HOURS TOPICAL PATCH TD SCH (10:23)
[2018-09-04] MEDS: TIMOLOL 0.5% OPHTHALMIC SOL 5 ML BOTTLE OU SCH ×2 (10:24→22:26)
[2018-09-04] MEDS: DORZOLAMIDE 2% HCL OPHTHALMIC SOLUTION 10 ML BOTTLE OS SCH ×2 (10:25→22:25)
[2018-09-04] MEDS: hydrOXYzine HCL 25 MG TABLET (FP) PO PRN (10:31)
[2018-09-04] MEDS: amLODIPine BESYLATE 10 MG TABLET (FP) PO SCH (10:32)
[2018-09-04] MEDS: PSYLLIUM 5.85 GM PACKET PO SCH ×2 (11:12→22:25)
--- NOTE | 2018-09-04 11:27 | PN ---
S CIWA - CIWA Score Nausea/Vomitin-No Nausea/No Vomiting Muscle Tremors: 1-None Visible, but [place] Anxiety: 1-Mildly Anxious Agitation: 1-Slight > Activity Paroxysmal Sweats: 1-Minimal Palms Moist Orientation: 1-Uncertain about Date Tacttile Disturbances: 0-None Auditory Disturbances: 0-None Visual Disturbances: 0-None Headache: 1-Very Mild CIWA-Ar Total Score: 6 [facility] Progress Note (SOAP) Subjective: slight tremor no sweat mild headaches received counselor reported that the insurance granted one more day detox hospitalization patient will be discharged to [facility] tomorrow 09/05/18 Objective: 09/04/18 11:26 Vital Signs Temperature 96.0 F L 09/04/18 09:33 Pulse Rate 118 H 09/04/18 09:33 Respiratory Rate 20 09/04/18 09:33 Blood Pressure 100/64 09/04/18 09:33 O2 Sat by Pulse Oximetry (%) Laboratory Last Values WBC 5.6 K/mm3 (4.0-10.0) 09/01/18 07:00 RBC 3.79 M/mm3 (4.00-5.60) L 09/01/18 07:00 Hgb 13.6 GM/dL (11.7-16.9) 09/01/18 07:00 Hct 39.2 % (35.4-49) 09/01/18 07:00 MCV 103.3 fl (80-96) H 09/01/18 07:00 MCH 35.8 pg (25.7-33.7) H 09/01/18 07:00 MCHC 34.7 g/dl (32.0-35.9) 09/01/18 07:00 RDW 15.2 % (11.9-15.9) 09/01/18 07:00 Plt Count 163 K/MM3 (134-434) D 09/01/18 07:00 MPV 9.2 fl (7.5-11.1) 09/01/18 07:00 Sodium 141 mmol/L (136-145) 09/01/18 07:00 Potassium 3.8 mmol/L (3.5-5.1) 09/04/18 07:45 Chloride 106 mmol/L (98-107) 09/01/18 07:00 Carbon Dioxide 29 mmol/L (21-32) 09/01/18 07:00 Anion Gap 6 MMOL/L (8-16) L 09/01/18 07:00 BUN 33 mg/dL (7-18) H 09/01/18 07:00 Creatinine 1.0 mg/dL (0.55-1.3) 09/01/18 07:00 Creat Clearance w eGFR > 60 (>60) 09/01/18 07:00 Random Glucose 90 mg/dL (74-106) 09/01/18 07:00 Calcium 8.6 mg/dL (8.5-10.1) 09/01/18 07:00 Total Bilirubin 0.9 mg/dL (0.2-1) 09/01/18 07:00 AST 92 U/L (15-37) H 09/04/18 07:45 ALT 141 U/L (13-61) H 09/01/18 07:00 Alkaline Phosphatase 77 U/L (45-117) 09/01/18 07:00 Total Protein 6.9 g/dl (6.4-8.2) 09/01/18 07:00 Albumin 3.5 g/dl (3.4-5.0) 09/01/18 07:00 Urine Color Yellow 08/31/18 22:00 Urine Appearance Clear 08/31/18 22:00 Urine pH 5.0 (5.0-8.0) D 08/31/18 22:00 Ur Specific [place] 1.024 (1.010-1.035) 08/31/18 22:00 Urine Protein 2+ (NEGATIVE) H 08/31/18 22:00 Urine Glucose (UA) Negative (NEGATIVE) 08/31/18 22:00 Urine Ketones Negative (NEGATIVE) 08/31/18 22:00 Urine Blood 1+ (NEGATIVE) H 08/31/18 22:00 Urine Nitrite Negative (NEGATIVE) 08/31/18 22:00 Urine Bilirubin Negative (<2.0 mg/dL) 08/31/18 22:00 Urine Urobilinogen Negative mg/dL (0.2-1.0) 08/31/18 22:00 Ur Leukocyte Esterase Negative (NEGATIVE) 08/31/18 22:00 Urine WBC (Auto) 1 /hpf (3-5) 08/31/18 22:00 Urine RBC (Auto) 2 /hpf (0-3) 08/31/18 22:00 Ur Epithelial Cells Rare /HPF (FEW) 08/31/18 22:00 Urine Mucus Rare 08/31/18 22:00 RPR Titer Nonreactive (NONREACTIVE) 09/01/18 07:00 lab noted ast from 121 to 71 09/04/18 11:26 Assessment: 09/04/18 11:27 mild withdrawal sx Plan: continue detox
[2018-09-04] MEDS: LATANOPROST 0.005% OPHTH SOLN 2.5ML BOTTLE OU SCH (22:24)
[2018-09-04] MEDS: THIAMINE HCL 100 MG TABLET (FP) PO SCH (22:24)
[2018-09-05 09:32] VITALS: BP 127/78; PULSE 88; TEMP 96
[2018-09-05] MEDS: amLODIPine BESYLATE 10 MG TABLET (FP) PO SCH (10:10)
[2018-09-05] MEDS: TAMSULOSIN HCL 0.4 MG CAP PO SCH (10:10)
[2018-09-05] MEDS: POTASSIUM CHLORIDE TABS 20 MEQ TABLET.ER (FP) PO SCH (10:10)
[2018-09-05] MEDS: TIMOLOL 0.5% OPHTHALMIC SOL 5 ML BOTTLE OU SCH (10:11)
[2018-09-05] MEDS: NICOTINE 14 MG/24 HOURS TOPICAL PATCH TD SCH (10:12)
[2018-09-05] MEDS: DORZOLAMIDE 2% HCL OPHTHALMIC SOLUTION 10 ML BOTTLE OS SCH (10:12)
[2018-09-05] MEDS: PSYLLIUM 5.85 GM PACKET PO SCH (10:14)
--- NOTE | 2018-09-05 10:37 | DS ---
[facility] Detox Discharge Summary Admission Date: 08/31/18 Discharge Date: 09/05/18 - History Present History: Alcohol Dependence Additional Comments: 68 years old male admitted on 08/31/18 for alcohol withdrawal stabilization completed detox regimen aftercare [place] Pertinent Past History: encourage bring the list of medication to aftercare appointment bring bottles of medication to aftercare appointment patient agrees to discuss lab result with aftercare facility medical provider liver enzyme elevation patient is hesitated to go to the aftercare facility as per counselor arranged recommend 12 step self help meeting - Physical Exam Results Vital Signs: Vital Signs Temperature 96.0 F L 09/05/18 09:31 Pulse Rate 88 09/05/18 09:31 Respiratory Rate 18 09/05/18 09:31 Blood Pressure 127/78 09/05/18 09:31 O2 Sat by Pulse Oximetry (%) Pertinent Admission Physical Exam Findings: alcohol withdrawal sx Laboratory Last Values WBC 5.6 K/mm3 (4.0-10.0) 09/01/18 07:00 RBC 3.79 M/mm3 (4.00-5.60) L 09/01/18 07:00 Hgb 13.6 GM/dL (11.7-16.9) 09/01/18 07:00 Hct 39.2 % (35.4-49) 09/01/18 07:00 MCV 103.3 fl (80-96) H 09/01/18 07:00 MCH 35.8 pg (25.7-33.7) H 09/01/18 07:00 MCHC 34.7 g/dl (32.0-35.9) 09/01/18 07:00 RDW 15.2 % (11.9-15.9) 09/01/18 07:00 Plt Count 163 K/MM3 (134-434) D 09/01/18 07:00 MPV 9.2 fl (7.5-11.1) 09/01/18 07:00 Sodium 141 mmol/L (136-145) 09/01/18 07:00 Potassium 3.8 mmol/L (3.5-5.1) 09/04/18 07:45 Chloride 106 mmol/L (98-107) 09/01/18 07:00 Carbon Dioxide 29 mmol/L (21-32) 09/01/18 07:00 Anion Gap 6 MMOL/L (8-16) L 09/01/18 07:00 BUN 33 mg/dL (7-18) H 09/01/18 07:00 Creatinine 1.0 mg/dL (0.55-1.3) 09/01/18 07:00 Creat Clearance w eGFR > 60 (>60) 09/01/18 07:00 Random Glucose 90 mg/dL (74-106) 09/01/18 07:00 Calcium 8.6 mg/dL (8.5-10.1) 09/01/18 07:00 Total Bilirubin 0.9 mg/dL (0.2-1) 09/01/18 07:00 AST 92 U/L (15-37) H 09/04/18 07:45 ALT 141 U/L (13-61) H 09/01/18 07:00 Alkaline Phosphatase 77 U/L (45-117) 09/01/18 07:00 Total Protein 6.9 g/dl (6.4-8.2) 09/01/18 07:00 Albumin 3.5 g/dl (3.4-5.0) 09/01/18 07:00 Urine Color Yellow 08/31/18 22:00 Urine Appearance Clear 08/31/18 22:00 Urine pH 5.0 (5.0-8.0) D 08/31/18 22:00 Ur Specific [place] 1.024 (1.010-1.035) 08/31/18 22:00 Urine Protein 2+ (NEGATIVE) H 08/31/18 22:00 Urine Glucose (UA) Negative (NEGATIVE) 08/31/18 22:00 Urine Ketones Negative (NEGATIVE) 08/31/18 22:00 Urine Blood 1+ (NEGATIVE) H 08/31/18 22:00 Urine Nitrite Negative (NEGATIVE) 08/31/18 22:00 Urine Bilirubin Negative (<2.0 mg/dL) 08/31/18 22:00 Urine Urobilinogen Negative mg/dL (0.2-1.0) 08/31/18 22:00 Ur Leukocyte Esterase Negative (NEGATIVE) 08/31/18 22:00 Urine WBC (Auto) 1 /hpf (3-5) 08/31/18 22:00 Urine RBC (Auto) 2 /hpf (0-3) 08/31/18 22:00 Ur Epithelial Cells Rare /HPF (FEW) 08/31/18 22:00 Urine Mucus Rare 08/31/18 22:00 RPR Titer Nonreactive (NONREACTIVE) 09/01/18 07:00 lab noted - Treatment Hospital Course: Detox Protocol Followed, Detoxed Safely, Responded well, Discharged Condition Good, Rehab Referral Accepted Patient has Accepted a Rehab Referral to: 12 [facility] self help community group - Medication Discharge Medications: Ambulatory Orders Dorzolamide HCl/Timolol Maleat [Cosopt Eye Drops] 1 gtt OS Q12H #0 drops Amlodipine Besylate [Norvasc -] 5 mg PO DAILY #30 tablet 09/04/18 Latanoprost 0.005% Eye Drops [Xalatan 0.005% Eye Drops -] 1 drop OU HS #1 drops 09/04/18 Tamsulosin HCl [Flomax] 0.4 mg PO DAILY #30 capsule 09/04/18 Timolol 0.5% [Timoptic 0.5%] 1 drop OU BID #1 drops 09/04/18 - Diagnosis (1) glaucoma right Status: Acute (2) Alcohol dependence with uncomplicated withdrawal Status: Acute (3) Elevated liver enzymes Status: Chronic (4) Nicotine dependence Status: Acute Qualifiers: Nicotine product type: cigarettes Substance use status: in withdrawal Qualified Code(s): F17.213 - Nicotine dependence, cigarettes, with withdrawal (5) Weight decreased Status: Acute (6) Essential hypertension Status: Chronic - AMA Did Patient Leave Against Medical Advice: No
== END 2018-09-05 12:30 | disposition home or self-care (01) | DRG 775 ==
LOC: YASAS 13:45 → Y6N 20:27 → Y3N 23:41
PROVIDERS: ADMIT Surgery; ATTEND Surgery
PROC: HZ2ZZZZ Detoxification Services for Substance Abuse Treatment (ICD-10-PCS; principal; 2018-08-31)
DX: F10.230 Alcohol dependence with withdrawal, uncomplicated (principal); F17.213 Nicotine dependence, cigarettes, with withdrawal; I10 Essential (primary) hypertension; R94.5 Abnormal results of liver function studies; H40.9 Unspecified glaucoma; E87.6 Hypokalemia; I69.351 Hemiplegia and hemiparesis following cerebral infarction affecting right dominant side; D64.9 Anemia, unspecified; L29.9 Pruritus, unspecified; R26.2 Difficulty in walking, not elsewhere classified; Z99.89 Dependence on other enabling machines and devices; Z59.0 Homelessness
CPT/HCPCS: 36415; 80053; 81003; 81015; 84132; 84450; 85027; 86593; 93005; 93010